=== PATIENT | male | born 2000 | race Caucasian/White ===

== ENCOUNTER 2021-01-16 19:31 | Emergency (ER) | payer MEDICAID ==
[~2021-01-16] VITALS: Ht 190.5 cm; Wt 93.9 kg
[2021-01-16 19:37] VITALS: BP 123/74
== END 2021-01-16 20:25 | disposition home or self-care (01) ==
LOC: ER 19:31
DX: J39.2 Other diseases of pharynx (principal); F12.90 Cannabis use, unspecified, uncomplicated
CPT/HCPCS: 99281

== ENCOUNTER 2021-01-19 04:23 | Emergency (ER) | payer MEDICAID ==
[~2021-01-19] VITALS: Ht 188 cm; Wt 92.7 kg
[2021-01-19 05:04] LABS: BASOPHILS # (AUTO) 0.1 X10'3 (0-0.2); BASOPHILS % (AUTO) 0.5 % (0-1); EOSINOPHILS # (AUTO) 0.1 X10'3 (0-0.9); EOSINOPHILS % (AUTO) 0.6 % (0-6); HEMATOCRIT 44.9 % (42.0-52.0); LYMPHOCYTES # (AUTO) 2.3 X10'3 (1.1-4.8); LYMPHOCYTES % (AUTO) 21.6 % (21-51); MEAN CORPUSCULAR HEMOGLOBIN 29.4 PG (27.0-31.0); MEAN CORPUSCULAR HGB CONC 33.3 g/dL (33.0-36.5); MEAN CORPUSCULAR VOLUME 88.2 FL (78-98); MEAN PLATELET VOLUME 9.2 FL (7.4-10.4); MONOCYTES # (AUTO) 1.7 X10'3 (0-0.9); MONOCYTES % (AUTO) 15.7 % (2-12); NEUTROPHILS # (AUTO) 6.5 X10'3 (1.8-7.7); NEUTROPHILS % (AUTO) 61.6 % (42-75); PLATELET COUNT 223 X10'3 (140-440); RED BLOOD COUNT 5.09 X10'6 (4.70-6.10); RED CELL DISTRIBUTION WIDTH 13.7 % (11.5-14.5); WHITE BLOOD COUNT 10.6 X10'3 (4.5-11.0)
[2021-01-19 05:08] LABS: ALANINE AMINOTRANSFERASE 48 U/L (12-78); ALBUMIN 4.2 G/DL (3.4-5.0); ALBUMIN/GLOBULIN RATIO 1.2 (1.1-1.5); ALKALINE PHOSPHATASE 89 IU/L (20-180); ANION GAP 8 (8-16); ASPARTATE AMINO TRANSFERASE 30 U/L (10-37); BILIRUBIN,TOTAL 0.3 MG/DL (0.1-1.0); BLOOD UREA NITROGEN 20 MG/DL (7-18); BUN/CREATININE RATIO 18.2 (5.4-32.0); CALCIUM 9.2 MG/DL (8.5-10.1); CHLORIDE 105 MMOL/L (99-107); GLUCOSE 98 MG/DL (70-104); POTASSIUM 4.2 MMOL/L (3.5-5.1); SODIUM 140 MMOL/L (135-145); TOTAL CARBON DIOXIDE 26.6 MMOL/L (24-32); TOTAL PROTEIN 7.7 G/DL (6.4-8.2); eGFR 85 ML/MIN
[2021-01-19 05:15] LABS: TROPONIN I < 0.04 NG/ML (0.0-0.05)
[2021-01-19 07:53] VITALS: BP 119/66
[2021-01-19 08:04] LABS: PLATELET ESTIMATE NORMAL; TOTAL CELLS COUNTED 100
== END 2021-01-19 07:54 | disposition home or self-care (01) ==
LOC: ER 04:23
DX: R07.89 Other chest pain (principal); R55 Syncope and collapse; F12.90 Cannabis use, unspecified, uncomplicated
CPT/HCPCS: 36415; 71045; 80053; 83880; 84484; 85007; 85025; 93005; 99285

== ENCOUNTER 2022-02-09 14:03 | Inpatient (IN) | payer MEDICAID ==
[~2022-02-09] VITALS: Ht 190.5 cm; Wt 102.1 kg
[2022-02-09] MEDS ORDERED: acetaminophen 325mg tablet PO ONE (14:15)
[2022-02-09] MEDS ORDERED: proCHLORperazine 10mg tablet PO ONE (14:15)
[2022-02-09 14:39] LABS: BASOPHILS % (AUTO) 0.5 % (0-1); EOSINOPHILS # (AUTO) 0.1 X10'3 (0-0.9); EOSINOPHILS % (AUTO) 0.7 % (0-6); HEMATOCRIT 45.8 % (42.0-52.0); HEMOGLOBIN 15.2 g/dl (14.0-17.9); LYMPHOCYTES # (AUTO) 2.4 X10'3 (1.1-4.8); LYMPHOCYTES % (AUTO) 29.3 % (21-51); MEAN CORPUSCULAR HEMOGLOBIN 28.2 PG (27.0-31.0); MEAN CORPUSCULAR HGB CONC 33.2 g/dL (33.0-36.5); MEAN CORPUSCULAR VOLUME 84.8 FL (78-98); MONOCYTES # (AUTO) 0.8 X10'3 (0-0.9); MONOCYTES % (AUTO) 10.1 % (2-12); NEUTROPHILS # (AUTO) 4.8 X10'3 (1.8-7.7); NEUTROPHILS % (AUTO) 59.4 % (42-75); PLATELET COUNT 255 X10'3 (140-440); RED CELL DISTRIBUTION WIDTH 13.5 % (11.5-14.5)
[2022-02-09 14:52] LABS: APTT 28 SECONDS (22-32)
[2022-02-09 14:54] LABS: ALANINE AMINOTRANSFERASE 41 U/L (12-78); ALBUMIN 4.7 G/DL (3.4-5.0); ALBUMIN/GLOBULIN RATIO 1.4 (1.1-1.5); ALKALINE PHOSPHATASE 86 IU/L (46-116); ANION GAP 13 (8-16); ASPARTATE AMINO TRANSFERASE 27 U/L (10-37); BILIRUBIN,TOTAL 0.4 MG/DL (0.1-1.0); BLOOD UREA NITROGEN 20 MG/DL (7-18); BUN/CREATININE RATIO 18.2 (5.4-32.0); CALCIUM 9.7 MG/DL (8.5-10.1); CHLORIDE 104 MMOL/L (99-107); GLUCOSE 98 MG/DL (70-104); POTASSIUM 3.7 MMOL/L (3.5-5.1); SODIUM 141 MMOL/L (135-145); TOTAL PROTEIN 8.1 G/DL (6.4-8.2); eGFR 85 ML/MIN
--- NOTE | 2022-02-09 16:24 | NUR ---
DR. OVERTON AT BEDSIDE.
[2022-02-09 17:30] LABS: CLARITY,URINE CLOUDY (Clear); COLOR,URINE YELLOW (Yellow); GLUCOSE, URINE NEGATIVE (Neg); KETONES,URINE TRACE mg/dl (Neg); LEUKOCYTE ESTERASE ,URINE NEGATIVE (Neg); NITRITES, URINE NEGATIVE (Neg); OCCULT BLOOD,URINE NEGATIVE (Neg); PROTEIN,URINE NEGATIVE (Neg)
[2022-02-09 17:31] LABS: UA COLLECTION TYPE CLN CATCH MIDSTREAM
[2022-02-09 17:38] LABS: MUCUS STRANDS MANY /LPF (Neg); SQUAMOUS EPITHELIAL CELL,UR FEW /LPF (FEW)
[2022-02-09 17:39] LABS: BACTERIA,URINE FEW /HPF (Neg); RBC,URINE 0-2 /HPF (0-2); WBC,URINE 0-4 /HPF (0-4)
[2022-02-09] MEDS ORDERED: aspirin 325mg tablet PO ONE (18:05)
--- NOTE | 2022-02-09 18:23 | NUR ---
ASSUMED CARE OF PT. PT SITTING ON SIDE OF BED.
[2022-02-09] MEDS ORDERED: morphine 2 MG/ML inj. syringe IV PRN ×2 (22:25)
[2022-02-09] MEDS ORDERED: mag hydrox/Alum hydrox/simeth 30ml oral suspension PO PRN (22:25)
[2022-02-09] MEDS ORDERED: HYDROcodone/acetaminophen 5mg/325mg tablet PO PRN (22:25)
[2022-02-09] MEDS ORDERED: ondansetron/PF 4mg/2ml inj IV PRN (22:25)
[2022-02-09] MEDS ORDERED: magnesium hydroxide 30ml (MOM) UD suspension PO PRN (22:25)
[2022-02-09] MEDS ORDERED: HYDROcodone/acetaminophen 10/325mg tab PO PRN (22:25)
[2022-02-09] MEDS ORDERED: acetaminophen 325mg tablet PO PRN ×2 (22:25)
[2022-02-09 22:43] LABS: HEMOGLOBIN A1C 5.5 % (4.5-6.2)
[2022-02-10] VITALS (11 sets, daily range): BP systolic 109–140; BP diastolic 53–84
--- NOTE | 2022-02-10 01:30 | NUR ---
during patient belongings biotechnician noted empty package of cigarettes, betting clerk, vape and sandwhich bag with what appears to be marijuana on bedside building inspector patient room. Patient stated empty cigarette pack can be thrown away. RN informed patient per hospital policy he cant keep light, vape and baggy at bedside. Patient verbalizes understanding. RN placed items in a bag with patient sticker and gave to charge nurse Marly.
[2022-02-10 05:55] LABS: BASOPHILS % (AUTO) 0.6 % (0-1); EOSINOPHILS # (AUTO) 0.1 X10'3 (0-0.9); EOSINOPHILS % (AUTO) 1.3 % (0-6); HEMATOCRIT 45.2 % (42.0-52.0); HEMOGLOBIN 14.9 g/dl (14.0-17.9); LYMPHOCYTES # (AUTO) 2.8 X10'3 (1.1-4.8); LYMPHOCYTES % (AUTO) 38.5 % (21-51); MEAN CORPUSCULAR HEMOGLOBIN 28.5 PG (27.0-31.0); MEAN CORPUSCULAR HGB CONC 32.9 g/dL (33.0-36.5); MEAN CORPUSCULAR VOLUME 86.6 FL (78-98); MONOCYTES # (AUTO) 0.9 X10'3 (0-0.9); MONOCYTES % (AUTO) 12.2 % (2-12); NEUTROPHILS # (AUTO) 3.5 X10'3 (1.8-7.7); NEUTROPHILS % (AUTO) 47.4 % (42-75); PLATELET COUNT 227 X10'3 (140-440); RED BLOOD COUNT 5.22 X10'6 (4.70-6.10); RED CELL DISTRIBUTION WIDTH 13.6 % (11.5-14.5); WHITE BLOOD COUNT 7.4 X10'3 (4.5-11.0)
[2022-02-10 06:11] LABS: ALBUMIN 4.1 G/DL (3.4-5.0); ANION GAP 10 (8-16); BLOOD UREA NITROGEN 21 MG/DL (7-18); BUN/CREATININE RATIO 18.1 (5.4-32.0); CALCIUM 9.5 MG/DL (8.5-10.1); CHLORIDE 106 MMOL/L (99-107); CHOL/HDL RATIO 4.6 (0.00-4.99); CHOLESTEROL 152 MG/DL (0-200); CREATININE 1.16 MG/DL (0.60-1.10); GLUCOSE 98 MG/DL (70-104); HDL CHOLESTEROL 33 MG/DL (35-60); LDL CHOLESTEROL 107 MG/DL (50-100); POTASSIUM 4.3 MMOL/L (3.5-5.1); SODIUM 142 MMOL/L (135-145); TOTAL CARBON DIOXIDE 26.5 MMOL/L (24-32); TRIGLYCERIDES 91 MG/DL (20-135); eGFR 79 ML/MIN
[2022-02-10] MEDS ORDERED: aspirin 325mg tablet, delayed-release (Ecotrin) PO SCH (08:00)
[2022-02-10] MEDS ORDERED: docusate sod 100mg capsule PO SCH (08:00)
--- NOTE | 2022-02-10 10:50 | NUR ---
MRI Bedside for transport
--- NOTE | 2022-02-10 16:08 | NUR ---
RN noted empty package of cigarettes, bow machine operator, vape and sandwhich bag with what appears to be marijuana, being held by furnace charger. All belongings to be returned to pt.
== END 2022-02-10 16:51 | disposition home or self-care (01) | DRG 812 ==
LOC: ER 14:03 → ED HOLD 22:25 → PCU 3S 02-10 00:20
PROVIDERS: ADMIT Internal Medicine; ATTEND Family Medicine
DX: T40.711A Poisoning by cannabis, accidental (unintentional), initial encounter (principal); G45.9 Transient cerebral ischemic attack, unspecified; R29.810 Facial weakness; F17.210 Nicotine dependence, cigarettes, uncomplicated; F12.90 Cannabis use, unspecified, uncomplicated; Z20.822 Contact with and (suspected) exposure to COVID-19; Z82.3 Family history of stroke; Z79.899 Other long term (current) drug therapy; Y92.89 Other specified places as the place of occurrence of the external cause
CPT/HCPCS: 36415; 70450; 70544; 70551; 71045; 80048; 80053; 80061; 81001; 82948; 83036; 85025; 85610; 85651; 85730; 86885; 86900; 86901; 87081; 87635; 93005; 93880; 99285; C9803; G0378

== ENCOUNTER 2022-02-11 17:55 | Emergency (ER) | payer MEDICAID ==
[~2022-02-11] VITALS: Ht 190.5 cm; Wt 99.1 kg
[2022-02-11 20:50] VITALS: BP 145/93
== END 2022-02-11 21:04 | disposition home or self-care (01) ==
LOC: ER 17:55
DX: R20.0 Anesthesia of skin (principal); Z00.01 Encounter for general adult medical examination with abnormal findings
CPT/HCPCS: 99281